=== PATIENT | male | born 1945 | race Caucasian/White ===

== ENCOUNTER 2021-04-03 09:17 | Day surgery (SDC) | payer MEDICARE, OTHER ==
--- NOTE | 2021-04-03 08:19 | HP ---
DATE OF SURGERY: 04/03/2021 HISTORY OF PRESENT ILLNESS: The patient is a 75-year-old who had some cancer in the past, had radiation therapy, had some intermittent loose stools on occasion, had some polyps previously. PAST MEDICAL HISTORY: Pulmonary embolism and was on Eliquis in the past. Arthritis. Hypothyroidism. Heart disease. Hyperlipidemia. Hypertension. PAST SURGICAL HISTORY: Colonoscopy in the past. Cholecystectomy. Diverticula in the past. Wrist surgery. Bilateral knee replacement in the past. MEDICATIONS: Amiodarone, atenolol, rosuvastatin, Eliquis, tamsulosin, levothyroxine, ranitidine, fish oil. Tetanus shot in the past. He has been on ropinirole and furosemide. ALLERGIES: PENICILLIN. CLINDAMYCIN. FAMILY HISTORY: Negative in regards to this problem. SOCIAL HISTORY: No alcohol abuse. REVIEW OF SYSTEMS: Fourteen systems reviewed pertinent for as noted above. No chest pain or palpitations. Other systems negative or noncontributory as above and per preadmission questionnaire. PHYSICAL EXAMINATION: GENERAL: No acute distress. HEENT: Sclerae nonicteric. NECK: No JVD. CHEST: Equal excursion, nonlabored breathing. CVS: Regular rate and rhythm. ABDOMEN: Soft. No peritoneal signs. EXTREMITIES: No significant edema. NEURO: Alert, oriented, moving extremities symmetrically. RECTAL: Deferred timed to endoscopy exam. PSYCH: Appropriate mood and affect. IMPRESSION: Need for follow up screening colonoscopy, I feel the patient is a candidate. Risks and benefits explained in detail including but not limited to bleeding or infection, risk of bowel injury or perforation possibly requiring open procedure, risk of missed or nondiagnosis or incomplete exam possibly requiring barium enema, other studies or procedures, general risk of anesthesia or sedation, risk of bowel prep but not limited to, consent obtained. Will proceed with outpatient follow up screening colonoscopy.
[2021-04-03] MEDS ORDERED: Lactated Ringers 1,000 ML IV ONE ×2 (09:19→11:50)
[2021-04-03] MEDS ORDERED: Lactated Ringers 1,000 ML IV SCH (09:30)
[2021-04-03] MEDS ORDERED: DIPRIVAN 200 MG/20 ML IV ONE (11:31)
[2021-04-03] MEDS ORDERED: Versed 2 MG/2 ML Injection ONE (11:31)
[2021-04-03 13:24] VITALS: PULSE 74
[2021-04-03 13:26] VITALS: BP 151/85; O2SAT 99
--- NOTE | 2021-04-04 08:14 | OP ---
SURGERY DATE/TIME: 04/03/2021 0773 PREOPERATIVE DIAGNOSIS: Need for screening colonoscopy. POSTOPERATIVE DIAGNOSES: 1) ASA Class III. 2) Fair but limited bowel prep. 3) Withdrawal time approximately 8 minutes. 4) Two small diverticula left colon. 5) Mild inflammation distal rectum. PROCEDURES: 1) Colonoscopy to cecum. 2) Random cold biopsies of colon to evaluate for microscopic colitis. 3) Random cold biopsies of inflammation in the distal rectum. SURGEON: Dr. Temo Levine. BLOCK BOLTER MULE OPERATOR: Cory Barragan Medical Student III. ANESTHESIA: MAC. ESTIMATED BLOOD LOSS: Minimal. INDICATIONS: As noted above. Risks and benefits explained in detail but not limited to and consent obtained. DESCRIPTION OF PROCEDURE AND FINDINGS: The patient is taken to the endoscopy room. MAC anesthesia induced. Digital rectal exam did not reveal any rectal masses. Video colonoscope inserted and passed up the slightly tortuous sigmoid, descending, transverse and ascending colon around to the cecum. Appendiceal orifice and valve well visualized and photo documented. Prep overall is fair. There is a lot of liquidy semisolid stool coating the bowel wall limiting exam for any small lesions this is suctioned and irrigated as clear as possible. The scope is carefully withdrawn over the next 8 minutes. Some random cold biopsies were taken in the colon to evaluate for microscopic colitis as he has significant inflammation in the rectum. Good hemostasis noted. There were no signs of any large polyps, masses or obstructing lesions. There are two small diverticula in the left colon. The distal rectum had some inflammation. Cold biopsy taken. Good hemostasis noted. Otherwise no signs of any large polyps, masses or obstructing lesions.
== END 2021-04-03 13:20 | disposition home or self-care (01) ==
LOC: EDSEX → SDC 09:17
PROVIDERS: ATTEND Surgery
DX: Z12.11 Encounter for screening for malignant neoplasm of colon (principal); K57.30 Diverticulosis of large intestine without perforation or abscess without bleeding; K62.89 Other specified diseases of anus and rectum
CPT/HCPCS: 99100; J2250; J2704

== ENCOUNTER 2022-08-27 11:14 | Day surgery (SDC) | payer MEDICARE, OTHER ==
--- NOTE | 2022-08-27 09:28 | HP ---
DATE OF SURGERY: 08/27/2022 HISTORY OF PRESENT ILLNESS: The patient is a 77-year-old with history of polyps in the past, internal hemorrhoid bleeding, history of prostate cancer. He had some diarrhea that on Ozempic the diarrhea improved. Family history negative for colon cancer. The patient has additional problem of lump on the back or flank lipoma. PAST MEDICAL HISTORY: As mentioned above. Pulmonary embolism. Prostate cancer. Anxiety, atrial fibrillation, arthritis, hypothyroidism. PAST SURGICAL HISTORY: T&A. Cholecystectomy. Knee replacement. Colonoscopy in the past. MEDICATIONS: Ozempic, levothyroxine, Euthyrox, escitalopram for anxiety, atorvastatin, vitamin E, ropinirole, vitamin B12, vitamin A, vitamin C, multivitamins, pantoprazole, hydrochlorothiazide, fish oil, tamsulosin, Xarelto. ALLERGIES: CLINDAMYCIN. PENICILLIN. FAMILY HISTORY: Negative for colon cancer. SOCIAL HISTORY: No smoking or alcohol abuse. REVIEW OF SYSTEMS: Fourteen systems reviewed. No chest pain or palpitations. Other systems negative or noncontributory as above and per preadmission questionnaire. PHYSICAL EXAMINATION: Height 5'10". BMI 27.98. GENERAL: No acute distress. HEENT: Sclerae nonicteric. EOMI. Oral mucous membranes moist. NECK: No JVD. CHEST: Equal excursion, nonlabored breathing. CVS: Regular rate and rhythm. ABDOMEN: Soft. No peritoneal signs. EXTREMITIES: No significant edema. NEURO: Alert, oriented, moving extremities symmetrically. No gross motor deficits noted. RECTAL: Deferred timed to endoscopy exam. PSYCH: Appropriate mood and affect. SKIN: Dry. IMPRESSION: History of polyps. He had some bleeding recently. History of prostate cancer. History of some diarrhea improved on Ozempic. The patient had a little bit of bleeding. There is some prolapsed internal hemorrhoids. I feel the patient would benefit from colonoscopy, possible internal hemorrhoid banding. General risk of bleeding or infection, risk of bowel injury or perforation, risk of missed or nondiagnosis or incomplete exam possibly requiring barium enema, other studies or procedures, general risk of anesthesia or sedation, risk of bowel prep, risk of pressure, aches or pain, infection regarding hemorrhoid banding. Risk of progression of hemorrhoids possibly requiring other procedures. Remote risk of major injection. General risk of aches, risk of sphincter spasm, irritability or dysfunction. Consent obtained. Will proceed colonoscopy possible hemorrhoid banding as an outpatient.
[2022-08-27] MEDS ORDERED: Lactated Ringers 1,000 ML IV ONE (11:54)
[2022-08-27] MEDS ORDERED: Lactated Ringers 1,000 ML IV SCH (12:30)
[2022-08-27] MEDS ORDERED: Xylocaine-Mpf 2% 5 Ml Vial ONE (12:46)
[2022-08-27] MEDS ORDERED: DIPRIVAN 200 MG/20 ML IV ONE ×2 (12:46→13:02)
[2022-08-27 14:14] VITALS: BP 116/64; PULSE 67; O2SAT 98
--- NOTE | 2022-08-28 07:54 | OP ---
SURGERY DATE/TIME: 08/27/2022 4149 PREOPERATIVE DIAGNOSIS: History of some rectal bleeding and some hemorrhoid disease in the past, history of prostate cancer in the past, history of some radiation treatments, history of polyps, need for follow up colonoscopy possible internal hemorrhoid banding. POSTOPERATIVE DIAGNOSES: 1) Ascending colon polyp, transverse colon polyp. 2) Fair bowel prep. 3) Evidence of some radiation proctitis. 4) Right posterior grade 2 friable internal hemorrhoids. 5) Fair bowel prep. 6) Withdrawal time approximately ten minutes on colonoscopy. 7) ASA Class III. PROCEDURES: 1) Colonoscopy to cecum. 2) Hot snare polypectomy ascending colon polyp. 3) Hot biopsy polypectomy small early transverse colon polyp versus hyperplastic lesion. 4) Internal hemorrhoid banding right column x1 right posterior. SURGEON: Dr. Dexter Levine. ANESTHESIA: MAC. ESTIMATED BLOOD LOSS: Minimal. INDICATIONS: As noted above. Risks and benefits explained in detail but not limited to and consent obtained. DESCRIPTION OF PROCEDURE AND FINDINGS: The patient is taken to the endoscopy room. MAC anesthesia induced. After official time out and no disagreement with planned procedure, digital rectal exam did not reveal any rectal masses. Video colonoscope inserted and passed up through the tortuous sigmoid, descending, transverse and ascending colon. Around to the cecum appendiceal orifice and ileocecal valve well visualized and photo documented. Prep overall is fair with a little bit of liquidy semisolid stool throughout the colon but overall fair bowel prep. The scope is carefully withdrawn over the next ten minutes. ASA Class III. The stool was suctioned and irrigated as clear as possible. There is an approximately 5 to 6 mm polyp in the ascending colon removed with hot snare polypectomy with brief bursts of cautery and removed intact. The base appeared to be viable. The specimen is retrieved. The scope is carefully pulled back to the transverse colon. A very small, early polyp versus hyperplastic lesion 2 mm in size removed with hot biopsy polypectomy. Good hemostasis noted. No signs of any other large polyps, masses or any other obstructing lesions. The scope pulled back to the rectum. He did have some evidence of distal radiation proctitis. He has past history of radiation therapy and friability. There was one hemorrhoid column grade 2. He complained of this and desired attempt at banding. The scope withdrawn. Hemorrhoid retractors were inserted. There was no evidence of any hemorrhoidal disease to band in the left lateral or right anterior. Right posterior did have a grade 2 and a suction assistant prosecuting attorney is carefully applied. One band applied to the stump. The patient tolerated the procedure well. There were no immediate complications. Findings discussed with the family out in the waiting area.
== END 2022-08-27 14:00 | disposition home or self-care (01) ==
LOC: SDC 11:14
PROVIDERS: ATTEND Surgery
DX: Z09 Encounter for follow-up examination after completed treatment for conditions other than malignant neoplasm (principal); Z86.010 Personal history of colon polyps; Z87.19 Personal history of other diseases of the digestive system; Z85.46 Personal history of malignant neoplasm of prostate; D12.2 Benign neoplasm of ascending colon; D12.3 Benign neoplasm of transverse colon; K62.7 Radiation proctitis; K64.8 Other hemorrhoids
CPT/HCPCS: 99100; J2704

== ENCOUNTER 2022-09-17 11:14 | Day surgery (SDC) | payer MEDICARE, OTHER ==
--- NOTE | 2022-09-17 09:36 | HP ---
DATE OF SURGERY: 09/17/2022 HISTORY OF PRESENT ILLNESS: The patient is a 77-year-old with history of polyps in the past, recent internal hemorrhoidal bleeding according to the patient. History of prostate cancer. He had some diarrhea but on Ozempic the diarrhea improved some. Family history negative for colon cancer. Second problem with lump on his back, question of lipoma on ultrasound that failed to improve. The patient on last colonoscopy had some radiation proctitis. He was arranged to have back mass excised. PAST MEDICAL HISTORY: Unchanged from his recent colonoscopy H&P. Pulmonary embolism, prostate cancer, anxiety, atrial fibrillation, arthritis, hypothyroidism. PAST SURGICAL HISTORY: Unchanged from his recent colonoscopy H&P. T&A. Cholecystectomy. Knee replacement. Colonoscopy. Prostate treatment. MEDICATIONS: Ozempic, levothyroxine, Euthyrox, escitalopram, atorvastatin, vitamin E, ropinirole, vitamin B12, vitamin A, vitamin C, multivitamins, pantoprazole, hydrochlorothiazide, fish oil, tamsulosin, Xarelto. ALLERGIES: CLINDAMYCIN. PENICILLIN. FAMILY HISTORY: Negative in regards to this problem. SOCIAL HISTORY: No smoking or alcohol abuse. REVIEW OF SYSTEMS: Fourteen systems reviewed. No chest pain or palpitations. Other systems negative or noncontributory as above and per preadmission questionnaire. PHYSICAL EXAMINATION: Height 5'10". BMI 27.98. GENERAL: No acute distress. HEENT: Sclerae nonicteric. EOMI. Oropharynx mucous membranes moist. NECK: No JVD. CHEST: Equal excursion, nonlabored breathing. CVS: Regular rate and rhythm. ABDOMEN: Soft. No peritoneal signs. BACK: Inflammatory subcutaneous mass question lipoma. EXTREMITIES: No significant edema. NEURO: Alert, oriented, moving extremities symmetrically. PSYCH: Appropriate mood and affect. SKIN: Dry. IMPRESSION: Enlarged back or flank subcutaneous mass versus lipoma. I feel he would benefit from excision. General risk of bleeding, infection, risk of hematoma or seroma formation, risk of dehiscence possibly requiring packing, general risk of aches, pains, burning or numbness. Risk of anesthesia, deep venous thrombosis, pulmonary embolism, or pneumonia but not limited to. He also understands what we excise once he heals the wound will not recur but he could get similar subcu mass or lipoma adjacent to or elsewhere on his body. He understands and agrees to the planned procedure. Will proceed with excisional biopsy of back or flank subcu mass as an outpatient. Continue his home medications for his multiple comorbidities.
[~2022-09-17 11:14] MED LIST: Lactated Ringers 1,000 ML IV ONE; Sensorcaine 0.25% 10 ML ONE
[2022-09-17] MEDS ORDERED: Lactated Ringers 1,000 ML IV ONE (11:41)
[2022-09-17] MEDS ORDERED: CLINDAMYCIN-D5W 900 MG/50 ML*** 900 MG/50 ML BAG IV ONE (11:41)
[2022-09-17] MEDS ORDERED: Lactated Ringers 1,000 ML IV SCH (12:00)
[2022-09-17 12:26] LABS: ALBUMIN 4.2 g/dL (3.5-5.0); ALKALINE PHOSPHATASE 79 U/L (38-126); ANION GAP 14.2 MEQ/L (5-15); BLOOD UREA NITROGEN 21 mg/dL (9-20); CHLORIDE 105 mmol/L (98-107); Calcium 9.6 mg/dL (8.4-10.2); Carbon Dioxide 26 mmol/L (22-30); Creatinine 1 0.76 mg/dL (0.66-1.25); EST GLOMERULAR FILTRATION RATE > 60.0 ML/MIN; Glucose 97 mg/dL (74-106); Potassium 4.6 mmol/L (3.5-5.1); SGOT/AST 50 U/L (17-59); SGPT/ALT 34 U/L (0-50); SODIUM 141 mmol/L (137-145); Total Protein 7.3 g/dL (6.3-8.2)
[2022-09-17] MEDS ORDERED: DIPRIVAN 200 MG/20 ML IV ONE (13:21)
[2022-09-17] MEDS ORDERED: SUBLIMAZE 100 MCG/2 ML ONE (13:21)
[2022-09-17] MEDS ORDERED: Quelicin Fliptop 200 MG/10 ML ONE (13:21)
[2022-09-17] MEDS ORDERED: Zemuron 100 MG/10 ML ONE (13:38)
[2022-09-17] MEDS ORDERED: PHENYLEPHRINE HCL ONE (13:45)
[2022-09-17] MEDS ORDERED: BRIDION 200MG/2ML IV ONE (13:52)
[2022-09-17 15:20] VITALS: BP 123/75; PULSE 71; O2SAT 96
--- NOTE | 2022-09-18 11:22 | OP ---
SURGERY DATE/TIME: 09/17/2022 4171 PREOPERATIVE DIAGNOSIS: Enlarging right back and flank area subcutaneous mass question lipomatous density. POSTOPERATIVE DIAGNOSIS: Enlarging right back and flank area subcutaneous mass question lipomatous density, path pending. PROCEDURE: Excisional biopsy of right back/flank area subcutaneous mass (approximately 4.5 cm with margins) with intermediate closure. SURGEON: Temo Levine M.D. ANESTHESIA: General. 1% lidocaine local. ESTIMATED BLOOD LOSS: Minimal. INDICATIONS: As noted above. Risks and benefits explained in detail but not limited to, consent obtained. DESCRIPTION OF PROCEDURE AND FINDINGS: The patient is taken to the operating room. General anesthesia induced, placed in lateral position, prepped and draped in usual sterile fashion. After official time out and no disagreement with planned procedure, transverse incision made overlying the mass just outside his rib area. Dissection carried down circumferentially around this dense lipomatous-type structure that is carefully dissected off of the underlying cyst wall and passed off. It measured about 4.5 cm in size. Good hemostasis noted. The wound is closed with interrupted 3-0 Vicryl closing the deep subcu down to the level of the fascia. Skin closed with 4-0 Vicryl. Steri-Strips and sterile dressing applied. 0.25% Marcaine local had been injected along the area. The patient tolerated the procedure well. There were no immediate complications. Findings discussed with the family out in the waiting area. He was transferred to the recovery room in stable condition. There were no immediate complications.
== END 2022-09-17 15:20 | disposition home or self-care (01) ==
LOC: SDC 11:14
PROVIDERS: ATTEND Surgery
DX: D17.1 Benign lipomatous neoplasm of skin and subcutaneous tissue of trunk (principal); Z85.46 Personal history of malignant neoplasm of prostate; I48.91 Unspecified atrial fibrillation
CPT/HCPCS: 36415; 80053; 93005; 99100; J0330; J2370; J2704; J3010